=== PATIENT | male | born 1945 ===

== ENCOUNTER 2017-06-04 01:02 | Emergency (ER) | payer MEDICARE, MEDICAID ==
[2017-06-04 01:45] VITALS: BMI 27.3
[2017-06-04 01:53] VITALS: BP 134/74; PULSE 77; RESP 18; TEMP 96.5; O2SAT 95
--- NOTE | 2017-06-04 02:33 | ED PDOC ---
HPI: CCC, URI, Sore Throat Chief Complaint (Provider): Epistaxis Additional History Per: Patient, Family <Felipa Ha - Last Filed: 06/04/17 03:19> <Brice Irby - Last Filed: 06/04/17 05:27> Time Seen by Provider: 06/04/17 01:35 Chief Complaint (Nursing): ENT Problem Additional Complaint(s): CC: Epistaxis 72M with acute onset epistaxis since Monday AM, but not able to control throughout the day. Reports this is the first time this has happened and denies any blood thinners or bleeding conditions. He currently denies any SOB, chest pain, palpitations, abdominal pain, diarrhea. Denies family history of coagulopathy, denies gum bleeding. PMD: [facility] in [place] PMH: Diabetes PSH: Cataracts b/l PFH: no coagulopathy Smoke: Never Alcohol: Occasional GARETT: Metformin 1000mg, PO, Daily Allergies: Ampicillin (Hives) (Felipa Ha) Supervising Attending Note - Attestation: I have personally seen and examined this patient.: Yes I have fully participated in the care of the patient.: Yes I have reviewed all pertinent clinical information, including history, physical exam and plan: Yes <Brice Irby - Last Filed: 06/04/17 05:27> Past Medical History - Medical History PMH: HTN Denies: Asthma, Diabetes - Family History Family History: States: No Known Family Hx <Felipa Ha - Last Filed: 06/04/17 03:19> <Brice Irby - Last Filed: 06/04/17 05:27> Vital Signs: Last Vital Signs Temp 96.5 F L 06/04/17 01:49 Pulse 77 06/04/17 01:49 Resp 18 06/04/17 01:49 BP 134/74 06/04/17 01:49 Pulse Ox 95 06/04/17 03:19 - Home Medications Home Medications: Ambulatory Orders Medication Instructions Recorded Oseltamivir [Tamiflu Cap] 75 mg PO BID #4 cap 12/14/15 metFORMIN [glucOPHAGE] 850 mg PO BID #0 tab 12/14/15 - Allergies Allergies/Adverse Reactions: Allergies Allergy/AdvReac Type Severity Reaction Status Date / Time Penicillins Allergy URTICARIA Verified 12/11/15 19:37 Review of Systems ROS Statement: Except As Marked, All Systems Reviewed And Found Negative ENT: Positive for: Nose Discharge (Blood L>R) <Felipa Ha - Last Filed: 06/04/17 03:19> Physical Exam - Reviewed Vital Signs Reviewed: Yes - Physical Exam Appears: Positive for: Non-toxic, No Acute Distress Head Exam: Positive for: ATRAUMATIC Skin: Positive for: Normal Color, Warm, Dry. Negative for: Rash (no petechia, no purpura) Eye Exam: Positive for: EOMI, PERRL Neck: Positive for: Normal, Supple Cardiovascular/Chest: Positive for: Regular Rate, Rhythm Respiratory: Positive for: Normal Breath Sounds. Negative for: Wheezing Gastrointestinal/Abdominal: Positive for: Bowel Sounds, Soft. Negative for: Tenderness Extremity: Positive for: Normal ROM. Negative for: Pedal Edema, Calf Tenderness <Felipa Ha - Last Filed: 06/04/17 03:19> - Laboratory Results Result Diagrams: 06/04/17 02:20 06/04/17 02:20 - ECG O2 Sat by Pulse Oximetry: 95 <Felipa Ha - Last Filed: 06/04/17 03:19> - Laboratory Results Result Diagrams: 06/04/17 02:20 06/04/17 02:20 <Brice Irby - Last Filed: 06/04/17 05:27> Medical Decision Making <Felipa Ha - Last Filed: 06/04/17 03:19> <Brice Irby - Last Filed: 06/04/17 05:27> Medical Decision MakinM not on medication for anticoagulation with acute onset epistaxis. Coagulopathy vs, structural as no evidence of trauma. - Labs - Anterior nasal packing LEFT (2cc inflated) - ice gauze to nose - ENT consult as indicated Re-Eval CBC: WNL (specifically plt: 185) CMP: BUN/Cr mildly elevated Coags: WNL Leave LEFT anterior rocket in place until seen by ENT, Dr Singh (Felipa Ha) Disposition - Patient ED Disposition Is Patient to be Admitted: No Counseled Patient/Family Regarding: Studies Performed, Need For Followup - Disposition Disposition: Routine/Home Disposition Time: 03:17 <Felipa Ha - Last Filed: 06/04/17 03:19> <Brice Irby - Last Filed: 06/04/17 05:27> - Clinical Impression Clinical Impression: Anterior epistaxis - Disposition Referrals: Juanito Devries MD [Staff Provider] - (Call for appointment within 3 days.) Condition: IMPROVED Additional Instructions: Return to the ED if uncontrolled bleeding recurs, fevers, or chills. Instructions: Nosebleed (ED) Forms: [facility] (Telugu) Print Language: MALAGASY
[2017-06-04 02:36] LABS: BASO % 0.4 % (0.0-2.0); EOS # 0.1 K/uL (0.0-0.7); EOS % 1.3 % (0.0-4.0); HEMATOCRIT 36.5 % (35.0-51.0); LYMPH # 2.4 K/uL (1.0-4.3); LYMPH % 36.4 % (20.0-40.0); MEAN CELL VOLUME 86.9 fl (80.0-94.0); MEAN CORPUSCULAR HEMOGLOBIN 29.2 pg (27.0-31.0); MEAN CORPUSCULAR HGB CONC 33.6 g/dL (33.0-37.0); MEAN PLATELET VOLUME 8.6 fl (7.2-11.7); MONO # 0.4 K/uL (0.0-0.8); MONO % 6.4 % (0.0-10.0); NEUT # 3.7 K/uL (1.8-7.0); NEUT % 55.5 % (50.0-75.0); NRBC % 0.1 % (0.0-0.0); RED CELL DISTRIBUTION WIDTH 13.5 % (11.5-14.5); WHITE BLOOD COUNT 6.6 K/uL (4.8-10.8)
[2017-06-04 02:49] LABS: BLOOD UREA NITROGEN 22 mg/dl (9-20); GFR AFRICAN-AMERICAN > 60; GLUCOSE,RANDOM 272 mg/dL (75-110); SODIUM 136 mmol/l (132-148)
[2017-06-04 02:50] LABS: CALCIUM 9.4 mg/dL (8.4-10.2); CARBON DIOXIDE 26 mmol/L (22-30); CHLORIDE 101 mmol/L (98-107); POTASSIUM 3.7 MMOL/L (3.6-5.0)
[2017-06-04 03:01] LABS: PARTIAL THROMBOPLASTIN TIME 29.9 Seconds (25.6-37.1)
== END 2017-06-04 06:14 | disposition home or self-care (01) ==
LOC: H.ER 01:02
DX: R04.0 Epistaxis (principal); E11.9 Type 2 diabetes mellitus without complications; I10 Essential (primary) hypertension; Z79.84 Long term (current) use of oral hypoglycemic drugs; Z88.0 Allergy status to penicillin

== ENCOUNTER 2018-07-21 15:58 | Emergency (ER) | payer MEDICARE, OTHER ==
[2018-07-21 15:59] VITALS: BMI 27.3
--- NOTE | 2018-07-21 16:46 | ED PDOC ---
HPI: Abdomen Time Seen by Provider: 07/21/18 16:30 Chief Complaint (Nursing): Abdominal Pain Chief Complaint (Provider): Abdominal Pain History Per: Patient History/Exam Limitations: no limitations Onset/Duration Of Symptoms: Days (x2 weeks) Current Symptoms Are (Timing): Still Present Quality Of Discomfort: "Pain" Associated Symptoms: Diarrhea. denies: Fever, Nausea, Vomiting, Chest Pain Additional Complaint(s): 73 year old male with a history of dm presents to the ED with lower abdominal pain onset approximately two weeks. Patient reports that pain has worsened in the past few days. He has associated watery, nonbloody diarrhea, but no fever or vomiting. He reports joint pain all over his body, including shoulders and knees for months, but takes no medications for it. Patient denies chest pain, headache, shortness of breath, bloody stools or any other medical complaints. PMD: [place] Past Medical History Reviewed: Historical Data, Nursing Documentation, Vital Signs Vital Signs: Last Vital Signs Temp 98.5 F 07/21/18 16:09 Pulse 83 07/21/18 16:09 Resp 16 07/21/18 16:09 BP 147/81 07/21/18 16:09 Pulse Ox 98 07/21/18 16:09 - Medical History PMH: Diabetes, HTN Denies: Asthma - Surgical History Surgical History: No Surg Hx - Family History Family History: States: Unknown Family Hx - Social History Current smoker - smoking cessation education provided: No Ex-Smoker (has not smoked in the last 12 months): No Alcohol: None Drugs: Denies - Home Medications Home Medications: Ambulatory Orders Medication Instructions Recorded RX: Oseltamivir [Tamiflu Cap] 75 mg PO BID #4 cap 12/14/15 metFORMIN [glucOPHAGE] 850 mg PO BID #0 tab 12/14/15 Ciprofloxacin HCl [Cipro] 500 mg PO BID #14 tablet 07/21/18 Metronidazole [Flagyl] 500 mg PO BID #14 tablet 07/21/18 RX: Naproxen 500 mg PO BID #20 tab 07/21/18 RX: Omeprazole 20 mg PO DAILY #30 capsule. 07/21/18 - Allergies Allergies/Adverse Reactions: Allergies Allergy/AdvReac Type Severity Reaction Status Date / Time Penicillins Allergy URTICARIA Verified 07/21/18 16:09 Review of Systems ROS Statement: Except As Marked, All Systems Reviewed And Found Negative Cardiovascular: Negative for: Chest Pain Respiratory: Negative for: Shortness of Breath Gastrointestinal: Positive for: Abdominal Pain, Diarrhea. Negative for: Nausea, Vomiting Musculoskeletal: Positive for: Other (joint pain ) Physical Exam - Reviewed Nursing Documentation Reviewed: Yes Vital Signs Reviewed: Yes - Physical Exam Appears: Positive for: No Acute Distress Head Exam: Positive for: ATRAUMATIC, NORMOCEPHALIC Eye Exam: Positive for: Normal appearance Cardiovascular/Chest: Positive for: Regular Rate, Rhythm. Negative for: Murmur Respiratory: Positive for: Normal Breath Sounds. Negative for: Respiratory Distress Gastrointestinal/Abdominal: Positive for: Soft, Tenderness (mild suprapubic ) Extremity: Positive for: Normal ROM (upper and lower). Negative for: Pedal Edema, Deformity, Swelling Neurologic/Psych: Positive for: Alert, Oriented (x3) - Laboratory Results Result Diagrams: 07/21/18 17:45 07/21/18 17:45 - ECG O2 Sat by Pulse Oximetry: 98 (RA) Pulse Ox Interpretation: Normal - Progress Re-evaluation Time: 19:50 Condition: Re-examined, Improved Medical Decision Making Medical Decision Making: Time: 163 Initial Impression: Abdominal pain, diarrhea and arthralgia Differential diagnoses for abdominal pain include but are not limited to: co litis and diverticulitis; for joint pain differential diagnoses include but are not limited to: chronic arthritis. Initial Plan: --CT abdomen and pelvis --CMP --U dip --CBC with differentials Time: 1934 CT abdomen and pelvis: COMMENTS: There are several cysts present in the right hepatic anthony with the largest measures 2 cm. There is no intra or extrahepatic biliary ductal dilatation. The spleen is normal. The gallbladder is within normal limits. The pancreas is of normal contour and attenuation characteristics. Note is made of a 2.5 cm nodule in the right adrenal gland measures 35 Hounsfield units on this post- contrast study. It is most consistent with an adenoma; however, for confi rmation, non-contrast CT is recommended. The left adrenal gland is unremarkable. The stomach is markedly distended containing a large amount of undigested food debris. Both kidneys demonstrate prompt and equal nephrograms. The kidneys are normal in size, shape, and configuration. There is no evidence of renal or ureteral mass. No renal or ureteral calculi are identified. There is no hydroureter or hydronephrosis. There is thickening of distal esophageal wall compatible with esophagitis. Consider followup with upper endoscopy. No evidence for appendicitis. Severely thick walled, fluid-filled loops of small bowel are present, all segments; however, jejunum is most severely invol [place] in the left lower quadrant with the wall measuring up to 4 mm. This is consistent with enteritis. Infectious and inflammatory etiologies are considered. No evidence for small or large bowel obstruction. There is no evidence of abdominal ascites or lymphadenopathy. Scattered diverticulae are present in the descending and sigmoid colon. No evidence of acute diverticulitis. Small, fat-containing left inguinal hernia is present. There is no evidence of intrinsic or extrinsic bladder mass. There is no pelvic ascites or lymphadenopathy. The prostate gland is mildly enlarged and contains calcifications. Please correlate with PSA levels. Minimally increased peripheral interstitial lung markings are present within the visualized lung arroy[place], suggestive of very early pulmonary fibrosis. There are no pleural effusions. The bony structures are free of lytic or blastic lesions. IMPRESSION: 1. Several hepatic cysts with the largest measures 2 cm. 2. Right adrenal adenoma. For confirmation, non-contrast CT is recommended. 3. Stomach is markedly distended containing a large amount of undigested food debris. 4. Esophagitis. Consider followup with upper endoscopy. 5. Enteritis. Infectious and inflammatory etiologies are considered. 6. Scattered diverticulae in the descending and sigmoid colon. No evidence of acute diverticulitis. 7. Small, fat-containing left inguinal hernia. 8. Mildly enlarged prostate gland and contains calcifications. Please cor relate with PSA levels. 9. Very early pulmonary fibrosis. Scribe Attestation: Documented by Tanna Rosenbaum, acting as a scribe for Brijesh Espinosa MD Provider Scribe Attestation: All medical record entries made by the Scribe were at my direction and personally dictated by me. I have reviewed the chart and agree that the record accurately reflects my personal performance of the history, physical exam, medical decision making, and the department course for this patient. I have also personally directed, reviewed, and agree with the discharge instructions and disposition. Disposition - Clinical Impression Clinical Impression: Hepatic cyst, Adrenal adenoma, Esophagitis, Enteritis, Prostate enlargement, Diverticulosis, Inguinal hernia, Arthritis - Patient ED Disposition Is Patient to be Admitted: No Doctor Will See Patient In The: Office Counseled Patient/Family Regarding: Studies Performed, Diagnosis, Need For Followup - Disposition Referrals: Robbie Mcdonnell MD [Family Provider] - Disposition: Routine/Home Disposition Time: 19:52 Condition: GOOD Additional Instructions: TENA PACK, thank you for letting us take care of you today. Your provider was Brijesh Espinosa MD and you were treated for ABD PAIN,ARM PAIN. The emergency medical care you received today was directed at your acute symptoms. If you were prescribed any medication, please fill it and take as directed. It may take several days for your symptoms to resolve. Return to the Emergency Department if your symptoms worsen, do not improve, or if you have any other problems. Please contact your doctor or call one of the physicians/clinics you have been referred to that are listed on the Patient Visit Information form that is included in your discharge packet. Bring any paperwork you were given at discharge with you along with any medications you are taking to your follow up visit. Our treatment cannot replace ongoing medical care by a primary care provider outside of the emergency department. Thank you for allowing the [facility] team to be part of your care today. If you had an X-Ray or CT scan: A Radiologist will review the ED reading if any change in treatment is needed we will contact you. If you had a blood, urine, or wound culture: It will take several days for the results, if any change in treatment is needed we will contact you. If you had an STI test: It will take 48 hours for the results. Please call after 1 week if you have not heard back. Prescriptions: Ciprofloxacin HCl [Cipro] 500 mg PO BID #14 tablet Metronidazole [Flagyl] 500 mg PO BID #14 tablet RX: Naproxen 500 mg PO BID #20 tab RX: Omeprazole 20 mg PO DAILY #30 capsule.dr Instructions: Inguinal and Femoral (Groin) Hernias, Diarrhea in Adolescents and Adults, Osteoarthritis (DC), Benign Prostatic Hyperplasia (Enlarged Prostate) (DC), Groin Hernia (DC), Cysts in the Liver Forms: [employer] (Nepalese) Print Language: YORUBA
[2018-07-21 17:49] LABS: BASO % 0.6 % (0.0-2.0); EOS # 0.2 K/uL (0.0-0.7); HEMOGLOBIN 14.2 g/dL (12.0-18.0); LYMPH # 1.4 K/uL (1.0-4.3); LYMPH % 21.9 % (20.0-40.0); MEAN CELL VOLUME 86.3 fl (80.0-94.0); MEAN CORPUSCULAR HGB CONC 33.6 g/dL (33.0-37.0); MONO # 0.3 K/uL (0.0-0.8); MONO % 5.4 % (0.0-10.0); NEUT # 4.2 K/uL (1.8-7.0); NEUT % 68.1 % (50.0-75.0); RBC 4.89 Mil/uL (4.40-5.90); RED CELL DISTRIBUTION WIDTH 13.7 % (11.5-14.5); WHITE BLOOD COUNT 6.2 K/uL (4.8-10.8)
[2018-07-21 17:58] LABS: ALB/GLOB RATIO 1.3 (1.0-2.1); ALBUMIN 4.4 g/dL (3.5-5.0); ALT/SGPT 26 U/L (21-72); AST/SGOT 20 U/L (17-59); BLOOD UREA NITROGEN 13 mg/dl (9-20); CALCIUM 8.6 mg/dL (8.4-10.2); GFR NON-AFRICAN AMERICAN > 60
[2018-07-21] MEDS ORDERED: Iohexol 300 100 ML IJ ONE (18:12)
[2018-07-21] MEDS ORDERED: Sodium Chloride 0.9% 50 ML IV ONE (18:12)
[2018-07-21 20:23] VITALS: BP 140/76; PULSE 85; RESP 18; TEMP 98.2
[2018-07-21 20:38] VITALS: O2SAT 98
--- NOTE | 2018-07-21 22:00 | CT ---
Date of service: 07/21/2018 PROCEDURE: CT Abdomen and Pelvis with and without intravenous contrast HISTORY: lower abdomianl apin diarrhea COMPARISON: None. TECHNIQUE: Axial images of the abdomen were obtained in the pre contrast, portal venous and delayed phases of enhancement. Coronal and sagittal reformats were generated. Contrast dose: Radiation dose: Total exam DLP = 636.99 mGy-cm. This CT exam was performed using one or more of the following dose reduction techniques: Automated exposure control, adjustment of the mA and/or kV according to patient size, and/or use of iterative reconstruction technique. FINDINGS: LOWER THORAX: Unremarkable. LIVER: Scattered hepatic cysts. GALLBLADDER AND BILE DUCTS: Unremarkable. PANCREAS: Unremarkable. No gross lesion or ductal dilatation. SPLEEN: Unremarkable. ADRENALS: 3.1 centimeter hypodense mass in the right adrenal gland. Recommend confirmation that the contrast gradient echo MRI KIDNEYS AND URETERS: Unremarkable. No hydronephrosis. No solid mass. VASCULATURE: Unremarkable. No aortic aneurysm. No aortic atherosclerotic calcification or mural plaque present. BOWEL: Mild colonic diverticulosis. No obstruction. No gross mural thickening. APPENDIX: Normal appendix. PERITONEUM: Unremarkable. No free fluid. No free air. LYMPH NODES: Unremarkable. No enlarged lymph nodes. BLADDER: Unremarkable. REPRODUCTIVE: Unremarkable. BONES: No acute fracture. OTHER FINDINGS: Tortuous aorta. IMPRESSION: 3.1 centimeter hypodense mass in the right adrenal gland. Recommend confirmation that the contrast gradient echo MRI
== END 2018-07-21 20:23 | disposition home or self-care (01) ==
LOC: H.ER 15:58
DX: K76.89 Other specified diseases of liver (principal); D35.01 Benign neoplasm of right adrenal gland; K20.9 Esophagitis, unspecified; K52.9 Noninfective gastroenteritis and colitis, unspecified; N40.0 Benign prostatic hyperplasia without lower urinary tract symptoms; K57.90 Diverticulosis of intestine, part unspecified, without perforation or abscess without bleeding; K40.90 Unilateral inguinal hernia, without obstruction or gangrene, not specified as recurrent; I10 Essential (primary) hypertension; E11.9 Type 2 diabetes mellitus without complications; Z79.84 Long term (current) use of oral hypoglycemic drugs; Z87.891 Personal history of nicotine dependence; Z88.0 Allergy status to penicillin
CPT/HCPCS: 74177; 80053; 85025; 96374; 99283; J1885; Q9967

== ENCOUNTER 2018-09-03 15:45 | Emergency (ER) | payer MEDICARE, OTHER ==
[2018-09-03 15:45] VITALS: BMI 27.3
--- NOTE | 2018-09-03 17:35 | ED PDOC ---
HPI: Chest Pain Time Seen by Provider: 09/03/18 16:55 Chief Complaint (Nursing): Chest Pain Chief Complaint (Provider): chest pain History Per: Patient History/Exam Limitations: no limitations Additional Complaint(s): 73 y/o M with HTN, HL, DM who presents with c/o B/L shoulder, neck and chest pain for the past month with N/V today. Pt states that he has had B/L arm/shoulder pain for the past month that began in his Right arm and went to his Left arm and then to his chest and back about 1 month ago. He states that he was given medication but does not know the name and states that it was not working. Denies palpitations, dizziness, shortness of breath. Had mild diarrhea today. Admits to having some numbness in L hand today. Past Medical History Reviewed: Historical Data, Nursing Documentation, Vital Signs Vital Signs: Last Vital Signs Temp 97.8 F 09/03/18 15:55 Pulse 60 09/03/18 15:55 Resp 16 09/03/18 15:55 BP 123/82 09/03/18 15:55 Pulse Ox 95 09/03/18 15:55 - Medical History PMH: HTN Denies: Asthma, Diabetes - Family History Family History: States: Unknown Family Hx - Home Medications Home Medications: Ambulatory Orders Medication Instructions Recorded Oseltamivir Cap [Tamiflu Cap] 75 mg PO BID #4 cap 12/14/15 metFORMIN [glucOPHAGE] 850 mg PO BID #0 tab 12/14/15 Ciprofloxacin HCl [Cipro] 500 mg PO BID #14 tablet 07/21/18 Metronidazole [Flagyl] 500 mg PO BID #14 tablet 07/21/18 Naproxen 500 mg PO BID #20 tab 07/21/18 Omeprazole 20 mg PO DAILY #30 capsule. 07/21/18 Acetaminophen [Tylenol 325mg tab] 650 mg PO Q6 PRN 5 Days tab 09/03/18 Cyclobenzaprine [Cyclobenzaprine 10 mg PO Q8H PRN 5 Days tab 09/03/18 HCl] Ibuprofen [Motrin Tab] 800 mg PO Q6 PRN 5 Days tab 09/03/18 - Allergies Allergies/Adverse Reactions: Allergies Allergy/AdvReac Type Severity Reaction Status Date / Time Penicillins Allergy URTICARIA Verified 09/03/18 15:55 Physical Exam - Reviewed Nursing Documentation Reviewed: Yes Vital Signs Reviewed: Yes - Physical Exam Appears: Positive for: Well Skin: Positive for: Normal Color Neck: Positive for: Decreased ROM (with extension of neck due to pain, normal flexion and lateral rotation.) Cardiovascular/Chest: Positive for: Regular Rate, Rhythm Respiratory: Positive for: Normal Breath Sounds Gastrointestinal/Abdominal: Positive for: Normal Exam Back: Positive for: Normal Inspection Extremity: Positive for: Other (reproducible chest pain with flexion of B/L arms, normal flexion/extension and abduction. ) Lymphatic: Positive for: Normal Exam Neurologic/Psych: Positive for: Alert, Oriented. Negative for: Motor/Sensory Deficits - Laboratory Results Result Diagrams: 09/03/18 18:02 09/03/18 18:02 - ECG O2 Sat by Pulse Oximetry: 95 Medical Decision Making Medical Decision Making: CBC, CMP, trop CXR EKG: sinus, HR 72, non-specific T wave abnormality in inferolateral leads. Toradol 30mg IM x 1 Flexeril 10mg PO x 1 CXR unremarkable Troponin negative Re-evaluated prior to d/c: neck/shoulder/chest pain improved. Stable for d/c home. Disposition - Clinical Impression Clinical Impression: Musculoskeletal pain - Patient ED Disposition Is Patient to be Admitted: No Counseled Patient/Family Regarding: Studies Performed, Diagnosis, Need For Followup - Disposition Referrals: Robbie Mcdonnell MD [Family Provider] - Disposition: Routine/Home Disposition Time: 20:32 Condition: STABLE Additional Instructions: Take Flexeril and Naproxen for pain. Perform slow stretching exercises when pain improves. F/u with your primary care doctor for further evaluation. Return to ER if you develop persistent nausea and vomiting or if you start to have profuse diarrhea and are not urinating much. Avoid fatty foods and milk products. Avoid taking any further Ibuprofen today given Toradol injection given in ER. Prescriptions: Acetaminophen [Tylenol 325mg tab] 650 mg PO Q6 PRN 5 Days tab PRN Reason: Pain, Moderate (4-7) Cyclobenzaprine [Cyclobenzaprine HCl] 10 mg PO Q8H PRN 5 Days tab PRN Reason: Pain, Moderate (4-7) Ibuprofen [Motrin Tab] 800 mg PO Q6 PRN 5 Days tab PRN Reason: Pain, Moderate (4-7) Instructions: Muscle Strain (DC) Forms: [employer] (Syriac) Print Language: GREEK
[2018-09-03 18:05] LABS: BASO % 0.7 % (0.0-2.0); EOS # 0.1 K/uL (0.0-0.7); EOS % 1.8 % (0.0-4.0); HEMOGLOBIN 14.2 g/dL (12.0-18.0); LYMPH # 2.6 K/uL (1.0-4.3); LYMPH % 38.1 % (20.0-40.0); MEAN CELL VOLUME 85.3 fl (80.0-94.0); MEAN CORPUSCULAR HEMOGLOBIN 29.5 pg (27.0-31.0); MEAN CORPUSCULAR HGB CONC 34.6 g/dL (33.0-37.0); MEAN PLATELET VOLUME 8.5 fl (7.2-11.7); MONO # 0.3 K/uL (0.0-0.8); MONO % 4.8 % (0.0-10.0); NEUT # 3.7 K/uL (1.8-7.0); NEUT % 54.6 % (50.0-75.0); RBC 4.8 Mil/uL (4.40-5.90); RED CELL DISTRIBUTION WIDTH 13.5 % (11.5-14.5); WHITE BLOOD COUNT 6.8 K/uL (4.8-10.8)
[2018-09-03 18:15] LABS: ALB/GLOB RATIO 1.1 (1.0-2.1); ALBUMIN 4.2 g/dL (3.5-5.0); BLOOD UREA NITROGEN 13 mg/dl (9-20); CALCIUM 9.3 mg/dL (8.4-10.2); GFR NON-AFRICAN AMERICAN > 60
[2018-09-03 18:23] LABS: ALT/SGPT 32 U/L (21-72); AST/SGOT 29 U/L (17-59)
--- NOTE | 2018-09-03 18:32 | RAD ---
Date of service: 09/03/2018 HISTORY: shortness of breath, cough COMPARISON: 12/11/2015 TECHNIQUE: Chest PA and lateral FINDINGS: LUNGS: No focal alveolar infiltrate. Minor interstitial changes. PLEURA: No significant pleural effusion identified. No pneumothorax apparent. CARDIOVASCULAR: Uncoiling of the aorta with mild atherosclerotic change and subtle calcification. Normal cardiac size. No pulmonary vascular congestion. OSSEOUS STRUCTURES: Degenerative changes of the spine without compression fracture. VISUALIZED UPPER ABDOMEN: Normal. OTHER FINDINGS: None. IMPRESSION: No focal infiltrate or CHF.
[2018-09-03 20:33] VITALS: BP 122/81; PULSE 83; RESP 15; TEMP 97.9
--- NOTE | 2018-09-04 06:43 | CARD ---
APPROVED REPORT Date of service: 09/03/2018 EKG Measurement Heart [id number] <Conclusion> Normal sinus rhythm Minimal voltage criteria for LVH, may be normal variant Borderline ECG
[2018-09-05 01:07] VITALS: O2SAT 95
== END 2018-09-03 20:33 | disposition home or self-care (01) ==
LOC: H.ER 15:45
DX: M79.10 Myalgia, unspecified site (principal); E11.9 Type 2 diabetes mellitus without complications; I10 Essential (primary) hypertension; Z79.84 Long term (current) use of oral hypoglycemic drugs; Z88.0 Allergy status to penicillin
CPT/HCPCS: 71046; 80053; 84484; 85025; 93005; 96372; 99283; J1885